=== PATIENT | male | born 1985 | race American Indian/Alaskan Native ===

== ENCOUNTER 2021-11-21 17:23 | Emergency (ER) | payer OTHER ==
[2021-11-21 18:01] LABS: BASOPHILS # (AUTO) 0.1 10^3/uL (0.0-0.1); BASOPHILS % (AUTO) 1.3 %; EOSINOPHILS # (AUTO) 0.1 10^3/uL (0.0-0.7); EOSINOPHILS % (AUTO) 1.8 %; HCT - HEMATOCRIT 47.6 % (42.0-52.0); HGB - HEMOGLOBIN 17.6 g/dL (14.0-18.0); LYMPHOCYTES # (AUTO) 2.3 10^3/uL (1.5-3.5); LYMPHOCYTES % (AUTO) 50.8 %; MEAN CORPUSCULAR HEMOGLOBIN 31.2 pg (27.0-31.0); MEAN CORPUSCULAR VOLUME 84.4 fL (80.0-94.0); MONOCYTES # (AUTO) 0.5 10^3/uL (0.0-1.0); MONOCYTES % (AUTO) 9.9 %; NEUTROPHILS # (AUTO) 1.6 10^3/uL (1.5-6.6); PLT - PLATELET COUNT 221 10^3/uL (130-450); RED BLOOD COUNT 5.64 10^6/uL (4.70-6.10); RED CELL DISTRIBUTION WIDTH 12.6 % (12.0-15.0); WHITE BLOOD COUNT 4.6 x10^3/uL (4.8-10.8)
[2021-11-21 18:07] LABS: KETONES, SERUM (ACETEST) NEGATIVE (NEGATIVE)
[2021-11-21 18:08] LABS: VBG BASE EXCESS 5.2 mmol/L (-2 - +2); VBG HCO3 30.8 mmol/L (23-28); VBG OXYGEN SATURATION 81.9 % (60-80); VBG PCO2 47.9 mmHg (41-51); VBG PH 7.426 (7.31-7.41); VBG PO2 44.7 mmHg (25-47); VBG TOTAL CO2 32.3 mmol/L (24-29)
[2021-11-21 18:16] LABS: ALBUMIN/GLOBULIN RATIO 1.5 (1.0-2.2); ALKALINE PHOSPHATASE 92 IU/L (42-121); ALT ALANINE AMINOTRANSFERASE 53 IU/L (10-60); AST ASPARTATE AMINOTRANSFERASE 40 IU/L (10-42); BILIRUBIN,TOTAL 0.5 mg/dL (0.2-1.0); BUN - BLOOD UREA NITROGEN 13 mg/dL (6-20); CALCIUM 10.1 mg/dL (8.5-10.3); CARBON DIOXIDE - CO2 28 mmol/L (21-32); CHLORIDE 88 mmol/L (101-111); CREATININE 0.9 mg/dL (0.6-1.2); GFR - MDRD 95 (>89); GLUCOSE 397 mg/dL (70-100); LIPASE 39 U/L (22-51); POTASSIUM 3.5 mmol/L (3.5-5.0); SODIUM 129 mmol/L (135-145); TOTAL PROTEIN 8.4 g/dL (6.7-8.2)
--- NOTE | 2021-11-21 19:00 | ED Physician Documentation ---
History of Present Illness - Stated complaint Stated Complaint: HIGH BLOOD GLUCOSE - Chief complaint Chief Complaint: General - History obtained from History obtained from: Patient - History of Present Illness Timing: Today Pain level max: 0 Pain level now: 0 - Additonal information Additional information: 36-year-old male presents to the emergency department stating that he is felt fatigued and increasingly thirsty over the past few weeks. He saw his doctor who recommended he get his blood sugar checked. He bought a glucometer and it was over 500 so came here. No nausea, vomiting, diarrhea. No headaches. No seizure activity. No history of diabetes. He does have a history of hypertension. Nothing makes it better or worse Review of Systems Constitutional: denies: Fever, Chills Cardiac: denies: Chest pain / pressure, Palpitations Respiratory: denies: Dyspnea, Cough GI: denies: Abdominal Pain, Nausea, Vomiting, Diarrhea : denies: Dysuria, Frequency, Hesitancy Musculoskeletal: denies: Back pain Endocrine: reports: Polydypsia, Polyuria, Polyphagia. denies: Weight loss, Weight gain PD PAST MEDICAL HISTORY - Past Medical History Past Medical History: Yes Cardiovascular: Hypertension - Present Medications Home Medications: Ambulatory Orders Medication Instructions Recorded Confirmed metFORMIN [Glucophage] 500 mg PO BIDWM #60 tablet 11/21/21 - Allergies Allergies/Adverse Reactions: Allergies Allergy/AdvReac Type Severity Reaction Status Date / Time No Known Drug Allergies Allergy Verified 11/21/21 17:38 - Living Situation Living Arrangement: reports: At home - Social History Does the pt have substance abuse?: No - Family History Family history: reports: Non contributory PD ED PE NORMAL - Vitals Vital signs reviewed: Yes - General General: Alert and oriented X 3, No acute distress - HEENT HEENT: Moist mucous membranes - Neck Neck: Supple, no meningeal sign - Cardiac Cardiac: RRR - Respiratory Respiratory: No respiratory distress, Clear bilaterally - Abdomen Abdomen: Soft, Non tender, Non distended - Derm Derm: Warm and dry - Extremities Extremities: No edema - Neuro Neuro: Alert and oriented X 3 - Psych Psych: Normal mood, Normal affect Results - Vitals Vitals: Vital Signs - 24 hr 11/21/21 11/21/21 17:34 19:09 Temperature 36.3 C L Heart Rate 100 102 H Respiratory 14 17 Rate Blood Pressure 147/95 H 144/106 H O2 Saturation 98 100 Oxygen O2 Source Nasal cannula - Labs Labs: Laboratory Tests 11/21/21 11/21/21 11/21/21 17:55 17:55 17:55 WBC 4.6 L RBC 5.64 Hgb 17.6 Hct 47.6 MCV 84.4 MCH 31.2 H MCHC 37.0 H RDW 12.6 Plt Count 221 MPV 11.0 Neut # (Auto) 1.6 Lymph # (Auto) 2.3 [place] # (Auto) 0.5 Eos # (Auto) 0.1 Baso # (Auto) 0.1 Absolute Nucleated RBC 0.00 Nucleated RBC % 0.0 VBG pH VBG pCO2 VBG pO2 VBG HCO3 VBG Total CO2 VBG O2 Saturation VBG Base Excess Sodium 129 L Potassium 3.5 Chloride 88 L Carbon Dioxide 28 Anion Gap 13.0 BUN 13 Creatinine 0.9 Estimated GFR (MDRD) 95 Glucose 397 H Estimat Average Glucose 278 H Hemoglobin A1c % 11.3 H Calcium 10.1 Total Bilirubin 0.5 AST 40 ALT 53 Alkaline Phosphatase 92 Total Protein 8.4 H Albumin 5.0 Globulin 3.4 Albumin/Globulin Ratio 1.5 Lipase 39 Serum Ketones NEGATIVE 11/21/21 17:55 WBC RBC Hgb Hct MCV MCH MCHC RDW Plt Count MPV Neut # (Auto) Lymph # (Auto) [place] # (Auto) Eos # (Auto) Baso # (Auto) Absolute Nucleated RBC Nucleated RBC % VBG pH 7.426 H VBG pCO2 47.9 VBG pO2 44.7 VBG HCO3 30.8 H VBG Total CO2 32.3 H VBG O2 Saturation 81.9 H VBG Base Excess 5.2 H Sodium Potassium Chloride Carbon Dioxide Anion Gap BUN Creatinine Estimated GFR (MDRD) Glucose Estimat Average Glucose Hemoglobin A1c % Calcium Total Bilirubin AST ALT Alkaline Phosphatase Total Protein Albumin Globulin Albumin/Globulin Ratio Lipase Serum Ketones PD MEDICAL DECISION MAKING - ED course Complexity details: reviewed results, re-evaluated patient, considered differential, d/w patient ED course: 36-year-old male with diabetes. Has never been on medication before. Hemoglobin A1c is 11.3 consistent with an estimated average glucose of 278. We will start the patient on metformin. No evidence of DKA. Patient is well- appearing, nontoxic. Afebrile. Patient will follow up with his doctor for further care. Patient counseled This document was made in part using voice recognition software. While efforts are made to proofread this document, sound alike and grammatical errors may occur. Departure - Departure Disposition: 01 Home, Self Care Clinical Impression: Diabetes Qualifiers: Diabetes mellitus type: type 2 Diabetes mellitus watermelon inspector insulin use: without jail use Diabetes mellitus complication status: without complication Qualified Code(s): E11.9 - Type 2 diabetes mellitus without complications Condition: Good Instructions: ED Diabetes General Info, ED Hyperglycemia Diabetic, ED Hyperglycemia New Susp Diabetes Follow-Up: your,doctor in 1 week [Other] Prescriptions: metFORMIN [Glucophage] 500 mg PO BIDWM #60 tablet Comments: Please follow-up with your doctor for further care. Your metformin was sent to [facility] in [place]. Return if you worsen. Your doctor can follow up your hemoglobin A1c that was drawn today as well. Discharge Date/Time: 11/21/21 19:05
[2021-11-21] MEDS: metFORMIN 500 MG TABLET PO STA (19:07)
[2021-11-21 19:11] VITALS: BP 144/106
[2021-11-21 20:34] LABS: ESTIMATED AVERAGE GLUCOSE 278 mg/dL (70-100); HEMOGLOBIN A1c% 11.3 % (4.27-6.07)
== END 2021-11-21 19:05 | disposition home or self-care (01) ==
LOC: ED 17:23
DX: E11.9 Type 2 diabetes mellitus without complications (principal)
CPT/HCPCS: 36415; 80053; 82009; 82803; 83036; 83690; 85025; 99283; A9270

== ENCOUNTER 2022-03-06 21:15 | Emergency (ER) | payer OTHER ==
[2022-03-06 22:17] LABS: BASOPHILS % (AUTO) 0.6 %; EOSINOPHILS % (AUTO) 0.3 %; HCT - HEMATOCRIT 43.8 % (42.0-52.0); HGB - HEMOGLOBIN 15.4 g/dL (14.0-18.0); LYMPHOCYTES # (AUTO) 1.1 10^3/uL (1.5-3.5); LYMPHOCYTES % (AUTO) 34.5 %; MEAN CORPUSCULAR HEMOGLOBIN 31.2 pg (27.0-31.0); MEAN CORPUSCULAR HGB CONC 35.2 g/dL (32.0-36.0); MEAN CORPUSCULAR VOLUME 88.7 fL (80.0-94.0); MEAN PLATELET VOLUME 9.5 fL (7.4-11.4); MONOCYTES # (AUTO) 0.7 10^3/uL (0.0-1.0); MONOCYTES % (AUTO) 21.4 %; NEUTROPHILS # (AUTO) 1.4 10^3/uL (1.5-6.6); NEUTROPHILS % (AUTO) 43.2 %; PLT - PLATELET COUNT 186 10^3/uL (130-450); RED BLOOD COUNT 4.94 10^6/uL (4.70-6.10); RED CELL DISTRIBUTION WIDTH 14.1 % (12.0-15.0); WHITE BLOOD COUNT 3.1 x10^3/uL (4.8-10.8)
[2022-03-06 22:30] LABS: ALBUMIN 4.7 g/dL (3.2-5.5); ALBUMIN/GLOBULIN RATIO 1.4 (1.0-2.2); BILIRUBIN,TOTAL 0.6 mg/dL (0.2-1.0); CALCIUM 9.4 mg/dL (8.5-10.3); POTASSIUM 3.6 mmol/L (3.5-5.0)
--- NOTE | 2022-03-06 22:45 | CT Report ---
PROCEDURE: HEAD WO INDICATIONS: L FACIAL NUMBNESS X1 WK TECHNIQUE: Noncontrast 4.5 mm thick angled axial sections acquired from the foramen magnum to the vertex. For r adiation dose reduction, the following was used: automated exposure control, adjustment of mA and/or kV according to patient size. COMPARISON: None. FINDINGS: Image quality: Excellent. CSF spaces: Basal cisterns are patent. No extra-axial fluid collections. Ventricles are normal in size and shape. Brain: No intracranial hemorrhage, mass, or mass effect. Stephens-white matter interface appears preser mimi. Skull and face: Calvarium and visualized facial bones are intact, without suspicious lesions. Sinuses: Visualized sinuses and mastoids are clear. IMPRESSION: 1. No acute intracranial abnormality. Reviewed by: Jose Meeks MD on 03/06/2022 10:44 PM PDT Approved by: Jose Meeks MD on 03/06/2022 10:44 PM PDT Station ID: [id number]
--- NOTE | 2022-03-06 22:49 | ED Physician Documentation ---
History of Present Illness - Stated complaint Stated Complaint: L SIDE NUMBNESS - Chief complaint Chief Complaint: Neuro - History obtained from History obtained from: Patient - History of Present Illness Timing: How many weeks ago (1) - Additonal information Additional information: 36-year-old male with history of [id number] diabetes presents for 1 week of left-sided facial numbness. Patient states that he woke up 1 week ago with the lower half of his face numb. He saw his dentist, who deemed it not a dental issue. Patient states that he has a primary care appointment tomorrow, but came in today because he figured that he would be referred to the ER anyway. Denies vision changes, hearing changes, dental pain, other numbness, weakness, vertigo, other complaints at this time. States that he was in his normal state of health until symptom onset. Review of Systems Ten Systems: 10 systems reviewed and negative Constitutional: denies: Fever, Chills, Myalgias Eyes: denies: Loss of vision, Decreased vision Ears: denies: Loss of hearing, Ear pain, Drainage/discharge, Tinnitus/ringing GI: denies: Nausea, Vomiting Neurologic: reports: Numbness. denies: Generalized weakness, Focal weakness, Headache PD PAST MEDICAL HISTORY - Past Medical History Past Medical History: Yes Cardiovascular: Hypertension Endocrine/Autoimmune: Type 2 diabetes GI: GERD Musculoskeletal: Gout - Present Medications Home Medications: Ambulatory Orders Medication Instructions Recorded Confirmed metFORMIN [Glucophage] 500 mg PO BIDWM #60 tablet 11/21/21 - Allergies Allergies/Adverse Reactions: Allergies Allergy/AdvReac Type Severity Reaction Status Date / Time lisinopril AdvReac Respiratory Verified 03/06/22 21:19 - Social History Does the pt smoke?: No Smoking Status: Never smoker Does the pt have substance abuse?: No PD ED PE NORMAL - Vitals Vital signs reviewed: Yes - General General: Alert and oriented X 3, No acute distress, Well developed/nourished - HEENT HEENT: Atraumatic, PERRL, EOMI, Ears normal, Moist mucous membranes, Pharynx benign, Dentition benign, Other (uvula midline) - Neck Neck: Supple, no meningeal sign, No JVD - Cardiac Cardiac: RRR, No murmur, Strong equal pulses - Respiratory Respiratory: No respiratory distress, Clear bilaterally - Abdomen Abdomen: Soft, Non tender, Non distended - Derm Derm: Normal color, Warm and dry, No rash - Extremities Extremities: No deformity, No tenderness to palpate, Normal ROM s pain, No ed zenobia, No calf tenderness / cord - Neuro Neuro: Alert and oriented X 3, No motor deficit, Normal speech, Other (decreased sensation lower L half of face. Eyebrows symmetrical, no hearing differences) - Psych Psych: Normal mood, Normal affect Results - Vitals Vitals: Vital Signs - 24 hr 03/06/22 03/06/22 21:19 23:01 Temperature 36.5 C 36.5 C Heart Rate 100 94 Respiratory 16 16 Rate Blood Pressure 160/90 H 140/100 H O2 Saturation 98 98 Oxygen O2 Source Room air - EKG (time done) 2210 Rate: Rate (enter#) (93) Rhythm: NSR [place]: Normal Intervals: Normal [place] QRS: Normal Ischemia: Normal ST segments - Labs Labs: Laboratory Tests 03/06/22 03/06/22 22:10 22:10 WBC 3.1 L RBC 4.94 Hgb 15.4 Hct 43.8 MCV 88.7 MCH 31.2 H MCHC 35.2 RDW 14.1 Plt Count 186 MPV 9.5 Neut # (Auto) 1.4 L Lymph # (Auto) 1.1 L [place] # (Auto) 0.7 Eos # (Auto) 0.0 Baso # (Auto) 0.0 Absolute Nucleated RBC 0.00 Nucleated RBC % 0.0 Sodium 139 Potassium 3.6 Chloride 101 Carbon Dioxide 27 Anion Gap 11.0 BUN 16 Creatinine 1.0 Estimated GFR (MDRD) 84 L Glucose 103 H Calcium 9.4 Total Bilirubin 0.6 AST 66 H ALT 90 H Alkaline Phosphatase 63 Total Protein 8.0 Albumin 4.7 Globulin 3.3 Albumin/Globulin Ratio 1.4 PD MEDICAL DECISION MAKING - ED course ED course: 36-year-old male with isolated lower left facial numbness for a week. Otherwise absolutely no focal neurologic deficits. Patient is 1 week out of symptom onset, either way patient is not candidate for tPA or intervention. CT negative for acute findings. Patient informed of his results, I strongly recommended that he keep his follow-up appointment with his primary care physician tomorrow as scheduled. Departure - Departure Disposition: 01 Home, Self Care Clinical Impression: Facial numbness Condition: Stable Instructions: ED Paraesthesias Comments: You are seen today for left-sided facial numbness for [address] was negative for any findings including signs of stroke. I highly recommend that you keep your primary care appointment tomorrow as scheduled. Discharge Date/Time: 03/06/22 23:01
[2022-03-06 23:04] VITALS: BP 140/100
== END 2022-03-06 23:01 | disposition home or self-care (01) ==
LOC: ED 21:15
DX: R20.0 Anesthesia of skin (principal); E11.9 Type 2 diabetes mellitus without complications; Z79.84 Long term (current) use of oral hypoglycemic drugs; I10 Essential (primary) hypertension
CPT/HCPCS: 36415; 80053; 85025; 93005; 99283; 99284

== ENCOUNTER 2022-04-23 15:58 | Outpatient (CLI) | payer OTHER ==
--- NOTE | 2022-04-23 17:04 | SLEEP CARE CONSULTATION ---
Information from patient questionnaire entered by Andreea Chavez. I have reviewed and concur with the information entered by Andreea Chavez. This document represents the service I personally performed and the decisions made by me, Mandie Crouch ARNP. History of Present Illness Service Date and Time: 04/23/2022 1558 Reason for Visit: New patient, Previously diagnosed sleep apnea, sleep apnea on CPAP therapy Chief Complaint: reports: Unrefreshed sleep, Snoring, Excessive daytime sleepiness, Observed pauses in breathing, Other (update supplies) Usual bedtime: 2200 Time it takes to fall asleep: 5 min or less Snores at night: Yes Observed to quit breathing while asleep: Yes Sleeps alone due to snoring: No Number of times waking at night: 1 Reasons for waking at night: reports: Bathroom Toss, Turn, or Twitch while sleeping: Yes Recalls having dreams: Yes Usually gets out of bed at: 0700 Feels refreshed in the morning: No Morning headache: No Sleepy or fatigued during the day: Yes Ever fallen asleep while driving: Yes Takes day naps: Yes Dreams during day naps: No Prior sleep studies: Yes Year and Where: 2018 [facility] Type of Sleep Study: Polysomnography Additional HPI information: LINDA RUSSO was previously diagnosed to have moderate, AHI 20, sleep apnea-hypopnea syndrome in [place] and comes in today to establish care for CPAP therapy. - Parasomnia Symptoms Ever been unable to move upon waking from sleep: No Walks in sleep: No Talks in sleep: No Ever acted out dreams in sleep: No Ever felt weak in the knees when startled or emotional: No Bothered by creepy, crawly, restless sensations in legs: No Problems with memory or concentration: Yes CPAP Compliance Data - Data Reviewed with Patient Average duration of nightly device use: 3 hours 42 minutes Compliance rate %: 2 ( days used) Current pressure setting (cmH2O): 5-20 (median 9.3, avg 13.3, max 14.8) Average residual AHI: 12.8 (unknown 12.3) Central apnea: 0.1 Obstructive apnea: 0.1 Average large leak: 0.9 lpm Compliance data discussion: He has a ResMed Airsense 10 that was set up in 2019. He is using a ResMed F20 fu ll face mask. He has not been getting regular supplies for last 3 years. Subjective Missed days of use due to: reports: other (needs supplies) Patient concerns: reports: condensation in mask/hose (will take mask off at this point). denies: aerophagia, mask discomfort, air blowing in eyes, mask leak noise, nasal congestion, dry mouth, nose, throat, epistaxis Observed to snore while using device: No (don't know) Current pressure setting perceived as: comfortable On therapy, patient: reports: sleeping better, awakening more refreshed, being more awake and alert during the day, more rested overall. 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 Patient is Legally and lives in [place]. Have you smoked in the past 12 months: Yes Cigarettes per day (20/pack): 1 Years of smokin Quit date: 02/2022 Smoking Pack Years: 0 Alcohol use: Yes Alcohol amount and frequency: 1-2 bottles of 3-5 times a week Caffeine use: Yes Caffeine amount and frequency: 1 cup coffee 3x a week in the am Family History Family history of sleep disordered breathing: No Family Hx Sleep Apnea: Father: Snoring Allergies and Home Medications Known drug allergies: Yes (lisinopril) Drug allergies reviewed: Yes (lisinopril) Home medication list reviewed: Yes Allergy and home medication list: Allergies lisinopril Adverse Reaction (Verified 03/06/22 21:19) Respiratory Medications: Indomethacin 25 mg Omeprazole 20 mg Jardiance 10 mg Metformin 500 mg Losartan 100 mg Atorvastatin 10 mg HCTZ 25 mg Colcichine 0.6 mg Review of Systems Weight loss over past 5 years: 20 Cardiovascular: reports: high blood pressure Urinary: reports: urgency Psychiatric: reports: depression Ear/Nose/Throat: reports: wisdom teeth removed. denies: tonsillectomy Endocrine: reports: sluggishness Musculoskeletal: reports: joint pain, muscle pain or cramping Physical Exam Vital signs obtained and entered by: ANDREEA West MA Blood Pressure: 152/100 (left arm) Cuff size: regular Heart Rate: 101 O2 Saturation: 94 Height: 5 ft 9 in Weight: 229 lb 6.4 oz Body Mass Index: 33.8 BMI Classification: Obese Neck circumference: 18 Mouth and throat: normal Soft palate: normal Hard palate: normal Uvula: long Uvula visualization: 50% Mallampati Class II Tongue: normal in size Tonsils: small Heart: regular rate and rhythm Lungs: clear bilaterally Impression and Plan 1. Obstructive Sleep Apnea-Hypopnea Syndrome, moderate, with poor treatment compliance and fair apnea control. On CPAP therapy, the patient has better sleep quality and is more rested overall. Patient was diagnosed with moderate sleep apnea around 2019. He left the country to [place] soon after and has had difficulty getting supplies to use his machine. He is using a ResMed F20 mask but it has been a long time since he got a new cushion. He had trouble with condensation in the mask which would limit his ability to use the CPAP mask. Patient's apnea severity and rationale for treatment to reduce apnea, improve sleep quality and reduce cardiovascular and cerebrovascular events was reviewed. I also reviewed the benefit of consistent device use of CPAP for hypertension, diabetes and gastric reflux. We will try to obtain a copy of his last sleep study but I was able to see on patient portal his diagnosis of moderate sleep apnea with an AHI of 20. Once we have a copy we can move forward with setting him up with supplies. If not, we will order a new sleep study. I also was able to supply him with a heated hose for his machine to reduce condensation but did not have a replacement for his mask. He will try to bring up his compliance using the old mask or ordering one online. I will then follow up to check compliance and set him up with DME supplier. 2. Obesity, unspecified. Currently patients BMI is 33.8. Obesity increases the risk of apnea, CPAP pressure requirements and overall health risks especially cardiovascular and diabetes. Thus patient is advised to lose weight. * Continue auto CPAP pressure at 5-20 cmH2O * Obtain last sleep study to verify diagnosis and severity * Notify me if snoring with mask or feeling that the pressure is too much or too little * Attempt to lose weight * Call this office if any problems using CPAP * Return for follow up in 1-2 months, or sooner if concerns arise Counseling Topics: Weight loss health impact Visit Type: In Office Time Spent with Patient (minutes): 35 Provider Statement: I spent 100% of the Face to Face Visit with the patient with greater than 50% spent counseling the patient and coordination of care.
[2022-04-24 01:02] VITALS: BP 152/100
== END 2022-04-23 15:59 | disposition home or self-care (01) ==
LOC: SC 15:58
PROVIDERS: ATTEND Nurse Practitioner Family
DX: G47.33 Obstructive sleep apnea (adult) (pediatric) (principal); E66.9 Obesity, unspecified; Z68.33 Body mass index [BMI] 33.0-33.9, adult; Z87.891 Personal history of nicotine dependence
CPT/HCPCS: 99203; 99212

== ENCOUNTER 2022-05-27 16:09 | Outpatient (CLI) | payer OTHER ==
--- NOTE | 2022-05-27 16:57 | SLEEP CARE CONSULTATION ---
Information from patient questionnaire entered by Andreea Chavez. I have reviewed and concur with the information entered by Andreea Chavez. This document represents the service I personally performed and the decisions made by , Mandie Crouch ARNP. History of Present Illness Service Date and Time: 05/27/2022 1609 Previous diagnosis: Moderate, Obstructive Sleep Apnea-Hypopnea Syndrome AHI: 20.6 (in 10/2019) Reason for follow up: one month (F/U ) Equipment type: CPAP (RESMED Airsense 10) Equipment obtained from: Other ([facility]) Mask style: Full face Mask brand: Resmed (F20) Backup mask available: No (will keep old mask when replaced) Last cushion change: 1 month Prior sleep studies: Yes Year and Where: [facility] Type of Sleep Study: Polysomnography HPI additional information: LINDA RUSSO was diagnosed to have moderate, AHI 20.6, obstructive sleep apnea-hypopnea syndrome and returned today for CPAP therapy one month follow-up. Sleep Study - Results Type of Sleep Study: Polysomnography Prior sleep studies: Yes Year and Where: [facility] CPAP Compliance Data - Data Reviewed with Patient Average duration of nightly device use: 3 hours 22 minutes Compliance rate %: 20 ( days used) Current pressure setting (cmH2O): 5-20 (median 11.4, avg 14.3, max 15.5) Average residual AHI: 11.6 (unknown index 10.4) Central apnea: 0.2 Obstructive apnea: 0.1 Hypopnea: 0.9 Average large leak: 22.6 LPM Subjective Missed days of use due to: reports: other (falling asleep without mask) Patient concerns: reports: condensation in mask/hose (improved with new mask and reducing humidity), dry mouth, nose, throat Observed to snore while using device: No Current pressure setting perceived as: comfortable Initial [place] Sleepiness Scale score: 14 Current [place] Sleepiness Scale score: 13 (05/27/2022) Allergies and Home Medications Drug allergies reviewed: Yes (lisinopril) Home medication list reviewed: Yes (no changes) Review of Systems Review of systems same as previous: Yes (no changes) Physical Exam Vital signs obtained and entered by: ANDREEA West MA Blood Pressure: 160/110 (LEFT ARM) Cuff size: regular Heart Rate: 102 O2 Saturation: 94 Height: 5 ft 9 in Weight: 235 lb 3.2 oz Body Mass Index: 34.7 BMI Classification: Obese Impression and Plan 1. Obstructive Sleep Apnea-Hypopnea Syndrome, moderate, with poor treatment compliance and fair apnea control with elevated AHI (unknown index at 10.4). On CPAP therapy, the patient has better sleep quality and is more rested overall. Patient has reduce compliance because he will fall asleep on couch and not put on his mask or take off after he has been sleeping for few hours. To prevent falling asleep without CPAP, patient advised to set a bedtime alarm on their phone for use while watching TV on couch or in bed. He voiced understanding. The patients pressure will be changed to autoCPAP 12-15 cmH20 for elevation of residual AHI. Patient advised to contact me if pressure change is uncomfortable so that it can be adjusted. Goals for apnea control discussed. Patient's apnea severity and rationale for treatment to reduce apnea, improve sleep quality and reduce cardiovascular and cerebrovascular events was reviewed. I also reviewed the benefit of consistent device use of CPAP for hypertension, diabetes, gastric reflux and depression. He wants to wait until his compliance is up before we restart with DME supplier. 2. Obesity, unspecified. Currently patients BMI is 34.7. Obesity increases the risk of apnea, CPAP pressure requirements and overall health risks especially cardiovascular and diabetes. Thus patient is advised to lose weight. * Change auto CPAP pressure to 12-15 cmH2O * Notify me if snoring with mask or feeling that the pressure is too much or too little * Attempt to lose weight * Call this office if any problems using CPAP * Return for follow up in 1-2 months, or sooner if concerns arise Counseling Topics: Spare mask, Weight loss health impact Visit Type: In Office Time Spent with Patient (minutes): 23 Provider Statement: I spent 100% of the Face to Face Visit with the patient with greater than 50% spent counseling the patient and coordination of care.
[2022-05-27 17:20] VITALS: BP 160/110
== END 2022-05-27 16:10 | disposition home or self-care (01) ==
LOC: SC 16:09
PROVIDERS: ATTEND Nurse Practitioner Family
DX: G47.33 Obstructive sleep apnea (adult) (pediatric) (principal); E66.9 Obesity, unspecified; Z68.34 Body mass index [BMI] 34.0-34.9, adult
CPT/HCPCS: 99212; 99213

== ENCOUNTER 2022-11-01 21:44 | Emergency (ER) | payer OTHER ==
--- NOTE | 2022-11-01 21:52 | ED Physician Documentation ---
PD HPI LOWER EXT INJURY - Stated complaint Stated Complaint: L KNEE SWELLING - History obtained from History obtained from: Patient - History of Present Illness PD HPI LOW EXT INJURY LOCATION: Both, Knee (backside of both knees with pressure/tight and aching. Left worse than right.) Type of injury: No: Fall, Twist Timing - onset: How many weeks ago (06/23) Timing - duration: Weeks (06/23) Timing - details: Gradual onset, Still present Worsened by: Moving (walking hurts, may full extension.), Palpating Associated symptoms: Swelling (popliteal area both sides. No effusion generally.). No: Weakness, Numbness Similar symptoms before: Has not had sx before, Other (history of gout but was in front of knee, not in the back like this.) Recently seen: Not recently seen Review of Systems Constitutional: denies: Fever, Chills Skin: denies: Rash, Lesions Neurologic: reports: Numbness (general numbness in peripheral legs/hands due to diabetic neuropathy.). denies: Focal weakness PD PAST MEDICAL HISTORY - Past Medical History Cardiovascular: Hypertension Endocrine/Autoimmune: Type 2 diabetes GI: GERD Musculoskeletal: Gout - Present Medications Home Medications: Ambulatory Orders Medication Instructions Recorded Confirmed Atorvastatin [Lipitor] See Rx Instructions .ROUTE .COMPLEX 04/23/22 11/01/22 Colchicine See Rx Instructions .ROUTE .COMPLEX 04/23/22 11/01/22 Empagliflozin [Jardiance] See Rx Instructions .ROUTE .COMPLEX 04/23/22 11/01/22 Indomethacin [Indocin] See Rx Instructions .ROUTE .COMPLEX 04/23/22 11/01/22 Losartan Potassium [Cozaar] See Rx Instructions .ROUTE .COMPLEX 04/23/22 11/01/22 Omeprazole Magnesium See Rx Instructions .ROUTE .COMPLEX 04/23/22 11/01/22 hydroCHLOROthiazide [Hydrodiuril] See Rx Instructions .ROUTE .COMPLEX 04/23/22 11/01/22 metFORMIN [Glucophage] 1,000 mg PO BIDWM 11/01/22 11/01/22 - Allergies Allergies/Adverse Reactions: Allergies Allergy/AdvReac Type Severity Reaction Status Date / Time lisinopril AdvReac Respiratory Verified 11/01/22 21:52 - Social History Does the pt smoke?: No Smoking Status: Never smoker Does the pt have substance abuse?: No PD ED PE NORMAL - Vitals Vital signs reviewed: Yes - General General: Alert and oriented X 3, No acute distress, Well developed/nourished - Derm Derm: Normal color, Warm and dry, No rash - Extremities Extremities: No edema, No calf tenderness / cord, Other (tender with some fullness in both popliteal areas, left more than right. The fullness feels somewhat rounded (consider bakers cysts). No anterior joint effusion. No redness nor warmth. ) - Neuro Neuro: Alert and oriented X 3, No motor deficit, Normal speech Results - Vitals Vitals: Vital Signs - 24 hr 11/01/22 11/01/22 21:49 22:25 Temperature 36.1 C L Heart Rate 110 H 98 Respiratory 19 16 Rate Blood Pressure 176/104 H 153/94 H O2 Saturation 95 100 Oxygen O2 Source Room air PD Medical Decision Making - ED course Complexity details: considered differential (Clinically feels likely to be Bradford's cyst. Consideration for local DVT is warranted. He has had slow progression in symptoms just in the popliteal area. Ultrasound is not available until the morning due to staffing. Shared decision with the patient is to come back tomorrow for ultrasound.), d/w patient ED course: Shared decision to defer anticoagulants due to low suspicion and will be able to get U/S tomorrow. Departure - Departure Disposition: 01 Home, Self Care Clinical Impression: Bilateral knee swelling Condition: Stable Comments: This has the feeling of likely a fluid outcropping from the joint space behind the knee, called a Bradford's cyst. Certainly concern for early blood clots or such is present. I think it is a fairly low probability and given the location just be high in the knee and not higher, would have a very low risk of propagating to the lungs even if it were an early blood clot. As such I feel it is safe for you to head home and come back tomorrow for the ultrasound, as we do not have the technicians on-call at this time of night on Thursday. I feel it is low risk/probability enough to be safe with the interval time. Her ultrasound technicians will be available from - tomorrow. Discharge Date/Time: 11/01/22 22:27
[2022-11-01 22:26] VITALS: BP 153/94
== END 2022-11-01 22:27 | disposition home or self-care (01) ==
LOC: ED 21:44
DX: R22.43 Localized swelling, mass and lump, lower limb, bilateral (principal)
CPT/HCPCS: 99281; 99282